=== PATIENT | male | born 1935 | race Caucasian/White ===

== ENCOUNTER 2021-06-16 00:47 | Inpatient (IN) | payer MEDICARE, BC ==
--- NOTE | 2021-06-16 01:05 | EDM.PDOC ---
ED HPI GENERAL MEDICAL PROBLEM - General Chief Complaint: Abdominal Pain Stated Complaint: STOMACH PAIN Time Seen by Provider: 06/16/21 00:55 Source of Information: Reports: Patient History Limitations: Reports: No Limitations - History of Present Illness INITIAL COMMENTS - FREE TEXT/NARRATIVE: Pierre is an 86-year-old male who presents to the ED for evaluation of acute onset of severe epigastric pain that started after eating supper tonight. The patient denies any nausea or vomiting but the pain has been building since its onset. He thought he could make it till morning, however, the pain is so intense now that he decided to come in. He does have a history for recently being treated for a bleeding gastric ulcer which was cauterized through endoscopy 4 months ago. The patient is on Protonix for this. He also has a remote history of bowel obstruction having to have a small portion of his bowel removed about 40 years ago. He denies any hematochezia, melena, or hematemesis. He has had no coffee-ground emesis. He denies any fever but does have chills. He denies any urinary symptoms. The symptoms started promptly after eating supper. Abdomen Pain Score (Numeric/FACES): 9 - Related Data Allergies Allergy/AdvReac Type Severity Reaction Status Date / Time No Known Allergies Allergy Verified 06/16/21 01:07 Home Meds: Home Meds Albuterol Sulfate [Albuterol Sulfate Hfa] 2 puff IH Q4H PRN 06/16/21 [History] Pantoprazole [ProTONIX] 40 mg PO DAILY 06/16/21 [History] Umeclidinium Brm/Vilanterol Tr [Anoro Ellipta 62.5-25 MCG] 1 each IH DAILY 06/16/21 [History] ED ROS GENERAL - Review of Systems Review Of Systems: See Below Constitutional: Reports: Chills HEENT: Reports: No Symptoms Respiratory: Reports: No Symptoms Cardiovascular: Reports: No Symptoms Endocrine: Reports: No Symptoms GI/Abdominal: Reports: Abdominal Pain (Epigastric) : Reports: No Symptoms Musculoskeletal: Reports: No Symptoms Skin: Reports: No Symptoms Neurological: Reports: No Symptoms Psychiatric: Reports: No Symptoms Hematologic/Lymphatic: Reports: No Symptoms Immunologic: Reports: No Symptoms ED EXAM, GI/ABD - Physical Exam Exam: See Below Exam Limited By: No Limitations General Appearance: Alert, Anxious, Moderate Distress, Thin Throat/Mouth: Normal Inspection, Normal Oropharynx, Normal Voice, No Airway Compromise Head: Atraumatic, Normocephalic Neck: Normal Inspection Respiratory/Chest: No Respiratory Distress, Lungs Clear, Normal Breath Sounds Cardiovascular: Normal Peripheral Pulses, Regular Rate, Rhythm, No Murmur, Other (Very loud systolic click heard in the left anterior chest) GI/Abdominal Exam: Guarding, Rebound, Tender (Moderate to severe epigastric tenderness), Abnormal Bowel Sounds (Absent bowel sounds), Other ([place]ym[place] to percussion throughout the abdomen) Extremities: Normal Inspection, No Pedal Edema Neurological: Alert, Oriented, Normal Cognition, No Motor/Sensory Deficits Psychiatric: Anxious Skin Exam: Warm, Dry, Pallor Lymphatic: No Adenopathy Course - Vital Signs Last Recorded V/S: Last Vital Signs Temp 36.6 C 06/16/21 01:07 Pulse 69 06/16/21 01:07 Resp 24 H 06/16/21 01:07 BP 90/50 L 06/16/21 01:07 Pulse Ox 97 06/16/21 01:07 - Orders/Labs/Meds Orders: Active Orders 24 hr Category Date Time Status Chest 1V Frontal [CR] Stat Exams 06/16/21 02:48 Ordered Sodium Chloride 0.9% [Saline Flush] Med 06/16/21 01:29 Active 10 ml FLUSH ASDIRECTED PRN NG [Nasogastric Orogastric Tube Insertion] [OM.PC] Oth 06/16/21 02:48 Ordered Routine Saline Lock Insert [OM.PC] Routine Oth 06/16/21 01:29 Ordered Medication Orders Sodium Chloride (Sodium Chloride 0.9% 10 Ml Syringe) 10 ml FLUSH ASDIRECTED PRN PRN Reason: Keep Vein Open Last Admin: 06/16/21 01:40 Dose: 10 ml Documented by: MARIA A Labs: Laboratory Tests 06/16/21 06/16/21 Range/Units 01:35 01:35 WBC 7.5 (4.5-11.0) K/uL RBC 3.92 L (4.30-5.90) M/uL Hgb 10.8 L (12.0-15.0) g/dL Hct 34.5 L (40.0-54.0) % MCV 88 (80-98) fL MCH 28 (27-31) pg MCHC 31 L (32-36) % Plt Count 247 (150-400) K/uL Neut % (Auto) 79.2 H (36-66) % Lymph % (Auto) 11.9 L (24-44) % [place] % (Auto) 8.0 H (2-6) % Eos % (Auto) 0.8 L (2-4) % Baso % (Auto) 0.1 (0-1) % Sodium 135 L (140-148) mmol/L Potassium 4.3 (3.6-5.2) mmol/L Chloride 97 L (100-108) mmol/L Carbon Dioxide 29 (21-32) mmol/L Anion Gap 13.3 (5.0-14.0) mmol/L BUN 18 (7-18) mg/dL Creatinine 1.0 (0.8-1.3) mg/dL Est Cr Clr Drug Dosing 42.34 mL/min Estimated GFR (MDRD) > 60 (>60) Glucose 103 (74-106) mg/dL Calcium 8.6 (8.5-10.1) mg/dL Total Bilirubin 0.2 (0.2-1.0) mg/dL AST 32 (15-37) U/L ALT 22 (12-78) U/L Alkaline Phosphatase 60 (46-116) U/L Total Protein 6.7 (6.4-8.2) g/dL Albumin 2.9 L (3.4-5.0) g/dL Globulin 3.8 H (2.3-3.5) g/dL Albumin/Globulin Ratio 0.8 L (1.2-2.2) Lipase 104 (73-393) U/L Meds: Medications Generic Name Dose Route Start Last Admin Trade Name Freq PRN Reason Stop Dose Admin Sodium Chloride 10 ml 06/16/21 01:29 06/16/21 01:40 Sodium Chloride 0.9% 10 Ml Syringe FLUSH 10 ml ASDIRECTED PRN Administration Keep Vein Open Discontinued Medications Generic Name Dose Route Start Last Admin Trade Name Freq PRN Reason Stop Dose Admin Hydromorphone HCl 0.5 mg 06/16/21 01:29 06/16/21 01:43 Hydromorphone 0.5 Mg/0.5 Ml Syringe IVPUSH 06/16/21 01:30 0.5 mg ONETIME ONE Administration Lidocaine HCl 10 ml 06/16/21 02:48 Lidocaine 2% Jelly 10 Ml Urojet MUCMEM 06/16/21 02:49 ONETIME ONE Ondansetron HCl 4 mg 06/16/21 01:29 06/16/21 01:40 Ondansetron 4 Mg/2 Ml Sdv IVPUSH 06/16/21 01:30 4 mg ONETIME ONE Administration - Radiology Interpretation Free Text/Narrative:: I reviewed the patient's CT of the abdomen and pelvis without contrast as well as the report. #1, the patient has nodular infiltrates present in the right lower lobe of the lung visualized on the right middle lobe of the lung as well worrisome for active granulomatous infection such as MAGGI or tuberculosis. #2, the small bowel is fluid-filled and distended measuring up to 3.2 cm in diameter with a transition point in the right flank where there is also decompressed small bowel loops seen extending into the anterior right perihepatic space. Findings are due to a high-grade small bowel obstruction from an internal hernia. #3, mild to moderate amount of stool is present in the rectal vault, correlation with physical exam is recommended to exclude fecal impaction. #4, there is a fluid-filled density structure with scattered marginal calcifications posteriorly in the right upper quadrant, interposed between the liver and right kidney, measuring 8.8 x 3.6 cm. This may arise from the right adrenal gland. Comparison with any outside prior imaging is recommended and if they cannot be obtained further evaluation with MRI is recommended. - Re-Assessments/Exams Free Text/Narrative Re-Assessment/Exam: 06/16/21 02:53 I reviewed the patient's labs showing a normal CBC with a leukocyte count of 7.5, hemoglobin of 10.8, hematocrit of 34.5, and platelet count of 247,000. The patient's comprehensive metabolic panel is also normal with a sodium of 135, potassium of 4.3, chloride of 97, bicarbonate of 29, BUN of 18 with a creatinine 1.0 and a glucose of 103. Liver enzymes are normal. Lipase is 104. One of the worrisome findings on the CT was the nodular infiltrates present in the right lung. This is being monitored on an ongoing basis by the [facility] with his last CT of the chest being done on 05/11/2017. I discussed the case with Dr. Guy who recommends putting an NG tube in on low intermittent suction, admitting the patient to the hospital who plan on taking the patient to the operating room this morning to address the internal hernia and high-grade small bowel obstruction. I discussed the case with Alethea Mtz, DIRECTOR OF RESIDENTIAL SERVICES will arrange for the admission. Departure - Departure Time of Disposition: 02:50 Disposition: Admitted As Inpatient 68 Clinical Impression: Small bowel obstruction, Hernia, internal Abdominal pain Qualifiers: Abdominal location: epigastric Qualified Code(s): R10.13 - Epigastric pain - Discharge Information Referrals: PCP,None [Primary Care Provider] - Forms: ED Department Discharge Sepsis Event Note (ED) - Focused Exam Vital Signs: Vital Signs Temp Pulse Resp BP Pulse Ox 06/16/21 01:07 36.6 C 69 24 H 90/50 L 97 - Problem List & Annotations (1) Abdominal pain SNOMED Code(s): 72429166 Code(s): R10.9 - UNSPECIFIED ABDOMINAL PAIN Status: Acute Priority: High Current Visit: Yes Qualifiers: Abdominal location: epigastric Qualified Code(s): R10.13 - Epigastric pain (2) Hernia, internal SNOMED Code(s): 92041108 Code(s): K45.8 - OTH ABDOMINAL HERNIA WITHOUT OBSTRUCTION OR GANGRENE Status: Acute Priority: High Current Visit: Yes (3) Small bowel obstruction SNOMED Code(s): 620577212 Code(s): K56.609 - UNSP INTESTNL OBST, UNSP TO PARTIAL VERSUS COMPLETE OBST Status: Acute Priority: High Current Visit: Yes - Problem List Review Problem List Initiated/Reviewed/Updated: Yes - My Orders Last 24 Hours: My Active Orders 06/16/21 01:29 Sodium Chloride 0.9% [Saline Flush] 10 ml FLUSH ASDIRECTED PRN Saline Lock Insert [OM.PC] Routine 06/16/21 02:48 Chest 1V Frontal [CR] Stat NG [Nasogastric Orogastric Tube Insertion] [OM.PC] Routine - Assessment/Plan Last 24 Hours: My Active Orders 06/16/21 01:29 Sodium Chloride 0.9% [Saline Flush] 10 ml FLUSH ASDIRECTED PRN Saline Lock Insert [OM.PC] Routine 06/16/21 02:48 Chest 1V Frontal [CR] Stat NG [Nasogastric Orogastric Tube Insertion] [OM.PC] Routine
[2021-06-16] MEDS ORDERED: Sodium Chloride 0.9% 10 ML Syringe FLUSH PRN (01:29)
[2021-06-16] MEDS ORDERED: HYDROmorphone 0.5 MG/0.5 ML Syringe IVPUSH ONE ×2 (01:29→03:08)
[2021-06-16] MEDS ORDERED: Ondansetron 4 MG/2 ML SDV IVPUSH ONE (01:29)
--- NOTE | 2021-06-16 02:24 | CRLCT ---
For Patients: As a result of the Century Cures Act, medical imaging exams and procedure reports are released immediately into your electronic medical record. You may view this report before your referring provider. If you have questions, please contact your health care provider. INDICATION: Epigastric pain TECHNIQUE: CT Abdomen and pelvis without i.v. contrast. Coronal and sagittal reformats were obtained. COMPARISON: None FINDINGS: Lower chest: Nodular infiltrates are present within the right lower lobe and visualized right middle lobe. Liver: Unremarkable. Spleen: Unremarkable. Pancreas: Unremarkable. Gallbladder: Several punctate gallstones are noted. Kidney: Unremarkable. No kidney or ureteral stones or obstruction seen. Adrenal: Unremarkable. Bowel: The small bowel is fluid-filled and distended measuring up to 3.2 cm in diameter with transition point in the right flank where there also decompressed small bowel loops seen extending into the anterior right perihepatic space. Moderate amount of stool is present throughout the colon which may be due to chronic constipation. A mild to moderate amount of stool is present in the rectal vault. The appendix is normal in appearance and size. Vascular: Unremarkable. Lymph: Unremarkable. Peritoneum: Unremarkable. No pneumoperitoneum is seen. No significant ascites is noted. Pelvis: Mild to moderate enlargement of the prostate gland is noted. Soft tissue: Unremarkable. Bone: Mild chronic compression deformities are present from L3-L5. IMPRESSIONS: 1. Nodular infiltrates are present within the right lower lobe and visualized right middle lobe. Active granulomatous infection such as MAGGI or tuberculosis should be considered. 2. The small bowel is fluid-filled and distended measuring up to 3.2 cm in diameter with transition point in the right flank where there also decompressed small bowel loops seen extending into the anterior right perihepatic space. Findings are due to high-grade small bowel obstruction from an internal hernia. 3. A mild to moderate amount of stool is present in the rectal vault. Correlation with physical exam recommended to exclude fecal impaction. Dictated by John Connor MD @ 06/16/2021 2:22:58 AM Prelim Report By Dr. John Connor @ 06/16/2021 2:23:05 AM ADDENDUM There is a fluid density structure with scattered marginal calcifications posteriorly in the right upper quadrant, interposed between the liver and right kidney, measuring 8.8 x 3.6 cm. This may arise from the right adrenal gland. Comparison with any outside prior imaging is recommended and if they cannot be obtained, further assessment with MRI is recommended. The above findings, this addendum, and recommendations were discussed with Dr. Alvares at 2:29 AM. Please note that all CT scans at this facility use dose modulation, iterative reconstruction, and/or weight-based dosing when appropriate to reduce radiation dose to as low as reasonably achievable. Dictated by: MD @ 06/16/2021 02:33:07 (Electronically Signed)
[2021-06-16] MEDS ORDERED: Lidocaine 2% Jelly 10 ML Urojet MUCMEM ONE (02:48)
--- NOTE | 2021-06-16 03:49 | PCM.HP.2 ---
H&P History of Present Illness - General Date of Service: 06/16/21 Admit Problem/Dx: Admission Diagnosis/Problem Admission Diagnosis/Problem Small bowel obstruction Source of Information: Patient, Provider, RN History Limitations: Reports: No Limitations - History of Present Illness Initial Comments - Free Text/Narative: chief complaint: small bowel obstruction This is a 86 year old male present to the ER for evaluation of sudden onset of abdominal pain after supper this evening. ER evaluation with CT abdominal pelvis shows a high grade small bowel obstructions with internal hernia. Consult to Dr. Nino Guy, who will do surgery this am. to correct this. Labs, NG placed to low intermittent suction in ER. Onset of Symptoms: Reports: Today, Sudden Duration of Symptoms: Reports: Hour(s): Location: Reports: Abdomen Quality: Reports: Sharp, Stabbing Severity: Severe Improves with: Reports: None Worsens with: Reports: None Associated Symptoms: Reports: No Other Symptoms Abdomen Pain Score (Numeric/FACES): 9 - Related Data Allergies/Adverse Reactions: Allergies Allergy/AdvReac Type Severity Reaction Status Date / Time No Known Allergies Allergy Verified 06/16/21 01:07 Home Medications: Home Meds Albuterol Sulfate [Albuterol Sulfate Hfa] 2 puff IH Q4H PRN 06/16/21 [History] Pantoprazole [ProTONIX] 40 mg PO DAILY 06/16/21 [History] Umeclidinium Brm/Vilanterol Tr [Anoro Ellipta 62.5-25 MCG] 1 each IH DAILY 06/16/21 [History] Past Medical History HEENT History: Reports: Impaired Vision Gastrointestinal History: Reports: GERD Musculoskeletal History: Reports: Fracture Hematologic History: Reports: Blood Transfusion(s) - Past Surgical History GI Surgical History: Reports: EGD, Small Bowel Social & Family History - Tobacco Use Tobacco Use Status *Q: Never Tobacco User Second Hand Smoke Exposure: No - Caffeine Use Caffeine Use: Reports: Coffee - Recreational Drug Use Recreational Drug Use: No - Living Situation & Occupation Living situation: Reports: 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 to his Britt >60 years, had two Sons. Key in [facility] for 9 months at a time.) H&P Review of Systems - Review of Systems: Review Of Systems: See Below General: Reports: Other (sleeping- awakens to name. AOx3, reports mild abdominal pain at this time, had pain medication in ER) HEENT: Reports: No Symptoms Pulmonary: Reports: No Symptoms Cardiovascular: Reports: No Symptoms Gastrointestinal: Reports: Abdominal Pain, Other (history of Crohns Disease) Genitourinary: Reports: No Symptoms Musculoskeletal: Reports: Back Pain (chronic back pain) Skin: Reports: Pallor, Dryness Psychiatric: Reports: No Symptoms Neurological: Reports: No Symptoms Hematologic/Lymphatic: Reports: No Symptoms Immunologic: Reports: No Symptoms Exam - Exam Exam: See Below - Vital Signs Vital Signs: Last Vital Signs Temp 98 F 06/16/21 01:07 Pulse 85 06/16/21 03:17 Resp 36 H 06/16/21 03:17 BP 127/69 06/16/21 03:17 Pulse Ox 99 06/16/21 03:17 Weight: 120 lb - Exam Quality Assessment: DVT Prophylaxis General: Alert, Oriented, Cooperative, Mild Distress, Other (very pale, thin, elderly male, pleasant and interactive) HEENT: PERRLA, Hearing Intact, Mucosa Moist & [place], Nares Patent, Normal Nasal Septum, Posterior Pharynx Clear, Conjunctiva Clear, EOMI, EACs Clear, TMs Clear Neck: Supple, Trachea Midline, Full Range of Motion Lungs: Clear to Auscultation, Normal Respiratory Effort Cardiovascular: Regular Rate, Regular Rhythm, Normal S1, Normal S2, Other (very loud systolic click left anterior chest) GI/Abdominal Exam: Guarding, Rebound, Tender, Abnormal Bowel Sounds (absent bowel sounds), Other (old surgical scars noted) (Male) Exam: Deferred Rectal (Males) Exam: Deferred Back Exam: Normal Inspection Extremities: Normal Inspection, Normal Range of Motion, Non-Tender, No Pedal Edema, Normal Capillary Refill Peripheral Pulses: 1+: Radial (L), Radial (R), Dorsalis Pedis (L), Dorsalis Pedis (R) Skin: Warm, Dry, Other (pallor) Neurological: Strength Equal Bilateral, Normal Gait, Normal Speech, Normal Tone, Sensation Intact Neuro Extensive - Mental Status: Alert, Oriented x3, Normal Mood/Affect, Normal Cognition, Memory Intact Neuro Extensive - Motor, Sensory, Reflexes: Normal Gait Psychiatric: Alert, Normal Affect, Normal Mood - Patient Data Lab Results Last 24 hrs: Laboratory Results - last 24 hr 08/02/21 08/02/21 Range/Units 01:35 01:35 WBC 7.5 (4.5-11.0) K/uL RBC 3.92 L (4.30-5.90) M/uL Hgb 10.8 L (12.0-15.0) g/dL Hct 34.5 L (40.0-54.0) % MCV 88 (80-98) fL MCH 28 (27-31) pg MCHC 31 L (32-36) % Plt Count 247 (150-400) K/uL Neut % (Auto) 79.2 H (36-66) % Lymph % (Auto) 11.9 L (24-44) % [place] % (Auto) 8.0 H (2-6) % Eos % (Auto) 0.8 L (2-4) % Baso % (Auto) 0.1 (0-1) % Sodium 135 L (140-148) mmol/L Potassium 4.3 (3.6-5.2) mmol/L Chloride 97 L (100-108) mmol/L Carbon Dioxide 29 (21-32) mmol/L Anion Gap 13.3 (5.0-14.0) mmol/L BUN 18 (7-18) mg/dL Creatinine 1.0 (0.8-1.3) mg/dL Est Cr Clr Drug Dosing 42.34 mL/min Estimated GFR (MDRD) > 60 (>60) Glucose 103 (74-106) mg/dL Calcium 8.6 (8.5-10.1) mg/dL Total Bilirubin 0.2 (0.2-1.0) mg/dL AST 32 (15-37) U/L ALT 22 (12-78) U/L Alkaline Phosphatase 60 (46-116) U/L Total Protein 6.7 (6.4-8.2) g/dL Albumin 2.9 L (3.4-5.0) g/dL Globulin 3.8 H (2.3-3.5) g/dL Albumin/Globulin Ratio 0.8 L (1.2-2.2) Lipase 104 (73-393) U/L Result Diagrams: 06/16/21 01:35 06/16/21 01:35 Sepsis Event Note - Evaluation Sepsis Screening Result: No Definite Risk - Focused Exam Vital Signs: Vital Signs Temp Pulse Resp BP Pulse Ox 06/16/21 03:17 85 36 H 127/69 99 06/16/21 01:07 98 F 69 24 H 90/50 L 97 - Problem List (1) Small bowel obstruction SNOMED Code(s): 589005320 ICD Code: K56.609 - UNSP INTESTNL OBST, UNSP TO PARTIAL VERSUS COMPLETE OBST Status: Acute Priority: High Current Visit: Yes (2) Hernia, internal SNOMED Code(s): 62510932 ICD Code: K45.8 - OTH ABDOMINAL HERNIA WITHOUT OBSTRUCTION OR GANGRENE Status: Acute Priority: High Current Visit: Yes (3) Chronic restrictive lung disease SNOMED Code(s): 93257405 ICD Code: J98.4 - OTHER DISORDERS OF LUNG Status: Acute Priority: Medium Current Visit: Yes Problem List Initiated/Reviewed/Updated: Yes Orders Last 24hrs: Active Orders 24 hr Category Date Time Status Patient Status Manage Transfer [TRANSFER] Routine ADT 06/16/21 03:33 Active Chest 1V Frontal [CR] Stat Exams 06/16/21 02:48 Ordered Sodium Chloride 0.9% [Saline Flush] Med 06/16/21 01:29 Active 10 ml FLUSH ASDIRECTED PRN NG [Nasogastric Orogastric Tube Insertion] [OM.PC] Oth 06/16/21 02:48 Ordered Routine Saline Lock Insert [OM.PC] Routine Oth 06/16/21 01:29 Ordered Resuscitation Status Routine Resus Stat 06/16/21 03:35 Ordered Medication Orders Sodium Chloride (Sodium Chloride 0.9% 10 Ml Syringe) 10 ml FLUSH ASDIRECTED PRN PRN Reason: Keep Vein Open Last Admin: 06/16/21 01:40 Dose: 10 ml Documented by: MARIA A Assessment/Plan Comment:: ASSESSMENT AND PLAN OF CARE- SMALL BOWEL OBSTRUCTION WITH INTERNAL HERNIA Small bowel obstruction-CT scan show small bowel obstruction with internal hernia -IV fluids- D5LR at 125ml/hr -Pain and nausea management -NG tube to intermittent suction -Surgical consultation Dr. Nino Guy- will do surgical repair this morning -Nothing by mouth Chronic Restrictive Lung Disease -albuterol and due neb ordered as needed -pulse ox prn Maintenance issues - - DVT prophylaxis - SCD - GI prophylaxis -PPI - IV Protonix 40 mg daily - Nutrition -nothing by mouth - Giron catheter -not indicated CODE STATUS -full code Admission justification - this patient will be admitted for inpatient services and is medically appropriate meeting medical necessity for inpatient admission as outlined in my documentation. I reasonably expect the patient will require inpatient services that span a period time over 2 midnights. I reasonably expect this patient to be discharged or transferred within 96 hours after admission to the [facility]. Disposition -I would anticipate discharge home after the hospital stay [facility] Y[facility]legria M.D. Surgery Service - Dr. Nino Guy - Mortality Measure- good - Mortality Measure Prognosis:: Good
[2021-06-16] MEDS ORDERED: Acetaminophen 650 MG Supp RECTAL PRN (04:21)
[2021-06-16] MEDS ORDERED: Dextrose 5%-Lactated Ringers 1,000 ML IV SCH (04:21)
[2021-06-16] MEDS ORDERED: LORazepam 2 MG/ML SDV IV PRN (04:21)
[2021-06-16] MEDS ORDERED: Albuterol 0.083% 2.5 MG/3 ML Neb Soln NEB PRN (04:21)
[2021-06-16] MEDS: Morphine 2 MG/ML SYRINGE IVPUSH PRN ×3 (04:56→08:23)
[2021-06-16] MEDS: Ondansetron 4 MG/2 ML SDV IV PRN (06:46)
[2021-06-16] MEDS: Tiotropium BR/Olodaterol HCL 4 GM Inhalation Spray 2.5mcg/1 dose; 10 doses INH SCH (07:55)
[2021-06-16] MEDS: Pantoprazole 40 MG Vial IV SCH (07:56)
[2021-06-16] MEDS ORDERED: Propofol 200 MG/20 ML SDV ONE (07:58)
[2021-06-16] MEDS ORDERED: Succinylcholine 200 MG/10 ML MDV ONE (07:58)
[2021-06-16] MEDS ORDERED: Ondansetron 4 MG/2 ML SDV ONE (07:58)
[2021-06-16] MEDS ORDERED: Neostigmine Methylsulfate 1 MG/ML 5 ML Syringe ONE (07:58)
[2021-06-16] MEDS ORDERED: Dexamethasone 4 MG/ML SDV ONE (07:58)
[2021-06-16] MEDS ORDERED: Glycopyrrolate 0.2 MG/ML 5 ML MDV ONE (07:58)
[2021-06-16] MEDS ORDERED: Rocuronium 50 MG/5 ML Vial ONE (07:58)
[2021-06-16] MEDS ORDERED: cefOXitin 2 GM in Sodium Chloride 0.9% 50 ML IV ONE (08:00)
[2021-06-16] MEDS ORDERED: fentaNYL 250 MCG/5 ML SDV ONE (08:00)
--- NOTE | 2021-06-16 08:26 | HP ---
HISTORY OF PRESENT ILLNESS: Pierre presented to [facility] with a sudden onset of abdominal pain. He had a CT scan with impression of small bowel fluid-filled and distended measuring up to 3.2 cm in diameter with transition point in the right flank where there are also decompressed small bowel loops seen extending into the anterior right perihepatic space. Findings are suggestive of a high-grade small bowel obstruction from an internal hernia. Surgery was asked to consult in regard to diagnosis of small bowel obstruction. Pierre is reporting pain on a pain scale of 1 to 10 about a 10/10. He is not due for a pain medication until 7:40. Vital signs are stable. Pain is a sharp pressure, it comes and goes, but never completely goes away. It ranges from a 7 to 10 out of a pain scale of 10 associated with nausea. Pain radiates to the lower back. No fever, chills. Has not had any weight loss. Nothing aggravates the pain. Nothing alleviates the pain that he has tried at home. REVIEW OF SYSTEMS: HEENT: Negative. NECK: Negative. HEART: No chest pain, shortness of breath, fast or irregular heart beat. LUNGS: No cough. ABDOMEN: As above. EXTREMITIES: Negative for any joint pain or swelling. NEUROLOGIC: No history of weakness, numbness, falls, or loss of coordination. PSYCHIATRIC: Negative for depression, insomnia. SKIN: Without rash. The remainder of review of systems negative for any pertinent positives and negatives. PAST MEDICAL HISTORY: Includes impaired vision, gastroesophageal reflux disease, and he did have a blood transfusion, partial small bowel obstruction. PAST SURGICAL HISTORY: He says he had surgery on his small bowel about 30 years ago and states it was due to an infection. Esophagogastroduodenoscopy between 4 to 6 months ago. He states he had an ulcer. SOCIAL HISTORY: Drinks coffee. Does not smoke. Does not drink any carbonation. FAMILY HISTORY: No family history that is contributory to today's visit. LIVING SITUATION: He is . Retired math specialist and counselor. Lived in [place], [place]. He has been 60 years. Has 2 sons and they go to [place] for 9 months throughout the winter. ALLERGIES: NO KNOWN MEDICAL ALLERGIES. MEDICATIONS: Anoro 1 puff inhalation daily, albuterol inhaler 2 puffs inhalation 4 hours p.r.n. wheezing, Protonix 40 mg p.o. daily. PHYSICAL EXAMINATION: GENERAL: Pierre is a pleasant 86-year-old male. VITAL SIGNS: Height is 5 feet 10 inches, weight is 120 pounds. TPR 97.8, 59, 16, blood pressure 107/52. HEENT: Negative. NECK: Supple. HEART: Regular rate and rhythm. LUNGS: Clear. ABDOMEN: Very tender, firm. EXTREMITIES: Without peripheral edema. NEUROLOGIC: Cranial nerves 2 through 12 intact. PSYCHIATRIC: Mood and affect appropriate. ASSESSMENT: Small bowel obstruction. PLAN: Schedule and have consent signed for exploratory laparotomy with release of small bowel obstruction and possible small bowel resection. General anesthesia, TAP block. Case to follow, 06/16/2021. Surgeon: Nino Guy MD. Cefoxitin 2 g IV on-call to OR. Postop orders will be written per Nino Guy MD. Arianna Sinclair PA-C /[id number]
[2021-06-16] MEDS ORDERED: Naloxone 0.4 MG/ML SDV IV PRN (09:00)
[2021-06-16] MEDS ORDERED: Tiotropium Bromide 4 GM Inhalation Spray (2.5mcg/1 dose; 10 doses) INH SCH (09:00)
[2021-06-16] MEDS ORDERED: Morphine PF 150 MG/30 ML PCA Syringe IV PRN (09:00)
[2021-06-16] MEDS ORDERED: Non-Formulary Medication 1 Each (Umeclidinium Brm/Vilanterol Tr [Anoro Ellipta 62.5-25 Mcg IH SCH (09:00)
[2021-06-16] MEDS ORDERED: Meropenem 500 MG SDV ONE (09:09)
[2021-06-16] MEDS ORDERED: Lidocaine 1% with EPINEPHrine 1:100,000 50 ML MDV ONE (09:09)
[2021-06-16] MEDS ORDERED: Bupivacaine 0.5% 50 ML MDV ONE (09:09)
[2021-06-16] MEDS ORDERED: Meropenem 500 MG SDV IRR ONE ×2 (11:45→12:10)
[2021-06-16] MEDS ORDERED: fentaNYL 100 MCG/2 ML SDV ONE (12:21)
[2021-06-16] MEDS ORDERED: Naloxone 0.4 MG/ML SDV ONE (12:38)
[2021-06-16] MEDS ORDERED: Cyclobenzaprine 10 MG Tab PO PRN (13:49)
[2021-06-16] MEDS ORDERED: hydrOXYzine HCL 100 MG/2 ML SDV IM PRN (14:00)
[2021-06-16] MEDS ORDERED: Labetalol 20 MG/4 ML Syringe IVPUSH PRN (14:00)
[2021-06-16] MEDS ORDERED: Acetaminophen 500 MG Tab PO PRN (14:00)
[2021-06-16] MEDS ORDERED: Albuterol/Ipratropium 3.0-0.5 MG/3 ML Neb Soln INH PRN (14:00)
[2021-06-16] MEDS ORDERED: Metoclopramide 10 MG/2 ML SDV IVPUSH PRN (14:00)
[2021-06-16] MEDS ORDERED: diphenhydrAMINE 50 MG/ML SDV IVPUSH PRN (14:00)
[2021-06-16] MEDS: Albuterol/Ipratropium 3.0-0.5 MG/3 ML Neb Soln INH SCH ×2 (14:11→21:22)
[2021-06-16] MEDS: cefOXitin 2 GM in Sodium Chloride 0.9% 50 ML IV SCH ×2 (15:19→21:21)
[2021-06-16] MEDS ORDERED: Lactated Ringers 500 ML IV ONE (15:45)
[2021-06-16] MEDS ORDERED: MVI, Adult with Vitamin K 10 ML, Thiamine 200 MG, Zinc/Copper/Manganese/Selenium 1 ML i... IV SCH ×4 (16:00)
[2021-06-16] MEDS: Acetaminophen 500 MG Tab PO SCH ×2 (16:26→21:21)
[2021-06-16] MEDS: Dextrose 5%-Lactated Ringers 1,000 ML IV SCH (21:21)
[2021-06-16] MEDS: Celecoxib 200 MG Cap PO SCH (21:21)
[2021-06-17] MEDS: Dextrose 5%-Lactated Ringers 1,000 ML IV SCH (03:12)
[2021-06-17] MEDS: cefOXitin 2 GM in Sodium Chloride 0.9% 50 ML IV SCH ×3 (03:12→16:07)
[2021-06-17] MEDS ORDERED: Iopamidol 612 MG/ML 50 ML SDV PO STA (04:53)
[2021-06-17] MEDS: Acetaminophen 500 MG Tab PO SCH ×3 (06:31→21:01)
[2021-06-17] MEDS ORDERED: Potassium Phosphates 30 MMOLE in Sodium Chloride 0.9% 250 ML IV SCH (07:15)
[2021-06-17] MEDS: Albuterol/Ipratropium 3.0-0.5 MG/3 ML Neb Soln INH SCH ×4 (07:24→21:03)
[2021-06-17] MEDS: Tiotropium BR/Olodaterol HCL 4 GM Inhalation Spray 2.5mcg/1 dose; 10 doses INH SCH (07:37)
[2021-06-17] MEDS: Pantoprazole 40 MG Vial IV SCH (07:57)
[2021-06-17] MEDS: Magnesium Sulfate/Water 2 GM/50 ML BAG IV SCH ×3 (08:07→20:58)
[2021-06-17] MEDS: Celecoxib 200 MG Cap PO SCH ×2 (08:08→21:01)
[2021-06-17] MEDS: Docusate Sodium 100 MG Cap PO SCH ×3 (08:08→21:16)
[2021-06-17] MEDS: Bisacodyl 5 MG Tab PO SCH ×2 (08:08→21:01)
[2021-06-17] MEDS: Potassium Phos in 0.9 % NaCl 15 MMOL in Premix Bag 1 BAG IV SCH ×4 (09:03→11:55)
[2021-06-17] MEDS: Ondansetron 4 MG/2 ML SDV IV PRN (10:17)
--- NOTE | 2021-06-17 11:44 | PN ---
DATE OF SERVICE: 06/17/2021 SUBJECTIVE: Pierre is postop day 1. He reports his pain is controlled. He has no other questions or concerns. OBJECTIVE: GENERAL: Pierre Martino is a pleasant 86-year-old male. He is alert and oriented. VITAL SIGNS: TPR is 97, 79, 18, blood pressure is 102/51. HEENT: Negative. NECK: Supple. HEART: Regular rate and rhythm. LUNGS: Clear. ABDOMEN: Dressings dry and intact. Abdominal binder is on. EXTREMITIES: Without peripheral edema. ASSESSMENT: Exploratory laparotomy with lysis of adhesions. 1. Reduction, small bowel volvulus. 2. Small bowel resection. 3. Small bowel proctoplasty. 4. Enterotomy for tube decompression, small bowel. 5. Resection of small bowel x2. 6. Excision of pelvic peritoneal implant. 7. Placement of Interceed mesh x2. POSTOPERATIVE DIAGNOSES: 1. Small bowel obstruction secondary to small bowel volvulus secondary to adhesions and segment of small bowel with extensive submucosal hemorrhage. 2. Small bowel stricture. 3. Marked dilatation, proximal small bowel. 4. Multiple proximal small bowel with 2 large ties, narrowed neck, and thrombosed elongation of adhesive inflammation. 5. Pelvic peritoneal implant. 6. Date of procedure 06/16/2021. Surgeon: Nino Guy MD. PLAN: 1. Decrease IV to 100 mL/hr at 1800. 2. Magnesium 2 g q.6 x72 hours IV. 3. K-Phos 30 mmol IV. 4. Check CBC, CMP, phos, and BNP in a.m. 5. Dulcolax 10 mg p.o. b.i.d. 6. Colace 100 mg p.o. b.i.d. 7. Schedule to have consent signed for delayed primary closure for open abdominal incision on 06/18/2021. Surgeon: Nino Guy MD. IV local sedation. 8. TAP block ordered for 06/18/2021, 0715. 9. Good pulmonary. Continue use of incentive spirometer and ambulation. 10.We will evaluate p.r.n. or in a.m. Giron catheter will be left in for marginal urinary output. Arianna Sinclair PA-C /[id number]
[2021-06-17] MEDS ORDERED: Lactated Ringers 500 ML IV ONE (13:00)
[2021-06-17] MEDS ORDERED: MVI, Adult with Vitamin K 10 ML, Thiamine 200 MG, Zinc/Copper/Manganese/Selenium 1 ML i... IV SCH ×4 (16:00)
[2021-06-18] MEDS: cefOXitin 2 GM in Sodium Chloride 0.9% 50 ML IV SCH ×4 (00:45→17:38)
[2021-06-18] MEDS: Dextrose 5%-Lactated Ringers 1,000 ML IV SCH ×2 (00:46→06:57)
[2021-06-18] MEDS: Magnesium Sulfate/Water 2 GM/50 ML BAG IV SCH ×4 (02:35→20:21)
[2021-06-18] MEDS: Acetaminophen 500 MG Tab PO SCH ×3 (06:12→21:03)
[2021-06-18] MEDS ORDERED: Meropenem 500 MG SDV ONE (06:42)
[2021-06-18] MEDS ORDERED: Bupivacaine 0.5% 50 ML MDV ONE (06:43)
[2021-06-18] MEDS ORDERED: Lidocaine 1% with EPINEPHrine 1:100,000 50 ML MDV ONE (06:43)
[2021-06-18] MEDS ORDERED: Propofol 200 MG/20 ML SDV ONE (06:58)
[2021-06-18] MEDS ORDERED: fentaNYL 100 MCG/2 ML SDV ONE (06:58)
[2021-06-18] MEDS: Albuterol/Ipratropium 3.0-0.5 MG/3 ML Neb Soln INH SCH ×4 (07:55→21:03)
[2021-06-18] MEDS: Pantoprazole 40 MG Vial IV SCH (08:28)
[2021-06-18] MEDS ORDERED: Cyanocobalamin (Vitamin B12) 1,000 MCG/ML SDV IM ONE (09:00)
--- NOTE | 2021-06-18 09:07 | CR ---
[facility] HISTORY: Postbariatric surgery FINDINGS: Patient swallowed water-soluble contrast. Upright views of the abdomen show no evidence of extravasation or obstruction. There is postoperative free intraperitoneal air IMPRESSION: Status post bariatric surgery No extravasation or obstruction seen
[2021-06-18] MEDS: Celecoxib 200 MG Cap PO SCH ×4 (09:54→21:05)
[2021-06-18] MEDS: Docusate Sodium 100 MG Cap PO SCH ×2 (09:54→20:25)
[2021-06-18] MEDS: Bisacodyl 5 MG Tab PO SCH ×2 (09:54→20:25)
[2021-06-18] MEDS: Tiotropium BR/Olodaterol HCL 4 GM Inhalation Spray 2.5mcg/1 dose; 10 doses INH SCH (09:59)
[2021-06-18] MEDS ORDERED: Docusate Sodium 100 MG Cap PO SCH (10:00)
--- NOTE | 2021-06-18 11:02 | PN ---
DATE OF SERVICE: 06/18/2021 SUBJECTIVE: Pierre is n.p.o. He will be going down for delayed primary closure. Vital signs have been stable. He states pain is controlled. Oral intake 280. Urine output via Giron catheter 575. REVIEW OF SYSTEMS: Remainder of review of systems negative for any pertinent positives and negatives. OBJECTIVE: GENERAL: Pierre is a pleasant, 86-year-old male. He is alert and orientated. Color pale. VITAL SIGNS: TPR is 97, 82, 14; blood pressure 102/55. HEENT: Negative. NECK: Supple. HEART: Regular rate and rhythm. LUNGS: Clear. ABDOMEN: Dressings dry and intact. Abdominal binder is on. EXTREMITIES: Without peripheral edema. ASSESSMENT: Exploratory laparotomy with lysis of adhesions. 1. Reduction of small bowel volvulus. 2. Small bowel resection. 3. Small bowel proctoplasty. 4. Enterotomy for tube decompression of small bowel. 5. Resection of small bowel x2. 6. Excision of pelvic peritoneal implants. 7. Placement of Interceed mesh x2. Date of procedure: 06/16/2021. Surgeon: Nino Guy MD. PLAN: Orders to be written after delayed primary closure. Arianna Sinclair PA-C /[id number]
[2021-06-19] MEDS: cefOXitin 2 GM in Sodium Chloride 0.9% 50 ML IV SCH ×3 (00:07→16:16)
[2021-06-19] MEDS: Dextrose 5%-Lactated Ringers 1,000 ML IV SCH ×4 (00:08→22:34)
[2021-06-19] MEDS: Magnesium Sulfate/Water 2 GM/50 ML BAG IV SCH ×4 (01:21→20:56)
[2021-06-19] MEDS: Acetaminophen 500 MG Tab PO SCH (05:56)
[2021-06-19] MEDS: Albuterol/Ipratropium 3.0-0.5 MG/3 ML Neb Soln INH SCH ×4 (07:08→21:03)
[2021-06-19] MEDS: Tiotropium BR/Olodaterol HCL 4 GM Inhalation Spray 2.5mcg/1 dose; 10 doses INH SCH (07:09)
[2021-06-19] MEDS: Pantoprazole 40 MG Vial IV SCH (07:51)
[2021-06-19] MEDS ORDERED: Azithromycin 125 MG in Sodium Chloride 0.9% 150 ML IV SCH (09:00)
[2021-06-19] MEDS: Acetaminophen Soln 650 MG/20.3 ML UD Cup PO SCH ×2 (09:44→16:13)
[2021-06-19] MEDS: Docusate Sodium 100 MG Cap PO SCH ×2 (09:44→20:56)
[2021-06-19] MEDS: Bisacodyl 5 MG Tab PO SCH ×2 (09:44→20:56)
--- NOTE | 2021-06-19 10:03 | PN ---
DATE OF SERVICE: 06/19/2021 SUBJECTIVE: Pierre had oral intake of 870. Urine output 750. He has had some difficulty swallowing pills, which is not new for him. Pain has been controlled. He has not passed any flatus. He has no other concerns or questions. OBJECTIVE: GENERAL: Pierre is a pleasant 86-year-old male. He is alert and orientated. VITAL SIGNS: TPR is 97.5, 101, 18, blood pressure 134/65. HEENT: Negative. NECK: Supple. HEART: Regular rate and rhythm. LUNGS: Clear. ABDOMEN: Dressings dry and intact. Abdominal binder is on. EXTREMITIES: Without peripheral edema. ASSESSMENT: Exploratory laparotomy with lysis of adhesions: 1. Reduction of small bowel volvulus. 2. Small bowel resection. 3. Small bowel proctoplasty. 4. Enterotomy of tube decompression of small bowel. 5. Resection of small bowel x2. 6. Excision of pelvic peritoneal implants. 7. Placement of Interceed mesh x2. Date of procedure: 06/16/2021. Surgeon: Nino Guy MD. PLAN: 1. Zithromax 125 mg IV q.12 hours scheduled. 2. To give all medications crushed or open capsules because of dysphagia. 3. Tylenol changed to liquid 1000 mg q.8 hours. 4. We will evaluate p.r.n. or in a.m. Arianna Sinclair PA-C /[id number]
[2021-06-19] MEDS: Azithromycin 125 MG in Sodium Chloride 0.9% 150 ML IV SCH (22:34)
[2021-06-20] MEDS: cefOXitin 2 GM in Sodium Chloride 0.9% 50 ML IV SCH ×3 (00:32→16:21)
[2021-06-20] MEDS: Acetaminophen Soln 650 MG/20.3 ML UD Cup PO SCH ×3 (00:33→15:38)
[2021-06-20] MEDS: Magnesium Sulfate/Water 2 GM/50 ML BAG IV SCH (03:04)
[2021-06-20] MEDS: Albuterol/Ipratropium 3.0-0.5 MG/3 ML Neb Soln INH SCH ×4 (07:28→21:58)
[2021-06-20] MEDS: Tiotropium BR/Olodaterol HCL 4 GM Inhalation Spray 2.5mcg/1 dose; 10 doses INH SCH (07:28)
[2021-06-20] MEDS ORDERED: Bisacodyl 10 MG Supp RECTAL PRN (07:32)
[2021-06-20] MEDS ORDERED: Magnesium Hydroxide 400 MG/5 ML Susp 30 ML Cup PO PRN (07:33)
[2021-06-20] MEDS ORDERED: HYDROmorphone 2 MG Tab PO PRN (07:34)
[2021-06-20] MEDS ORDERED: Bisacodyl 10 MG Supp RECTAL ONE (07:45)
[2021-06-20] MEDS ORDERED: Magnesium Hydroxide 400 MG/5 ML Susp 30 ML Cup PO ONE (08:00)
[2021-06-20] MEDS: Docusate Sodium 100 MG Cap PO SCH ×3 (08:07→22:03)
[2021-06-20] MEDS: Bisacodyl 5 MG Tab PO SCH (08:15)
[2021-06-20] MEDS: Pantoprazole 40 MG Delayed-Release Granules 1 Packet PO SCH (08:18)
[2021-06-20] MEDS: Azithromycin 125 MG in Sodium Chloride 0.9% 150 ML IV SCH (11:21)
[2021-06-20] MEDS: Dextrose 5%-Lactated Ringers 1,000 ML IV SCH (12:26)
--- NOTE | 2021-06-20 14:35 | PN ---
DATE OF SERVICE: 06/20/2021 The patient has been afebrile with stable vital signs. He thought he was going to move his bowels this morning, but has not yet. We will continue to give him some bowel stimulation today, continue clear liquids. We will switch over to oral pain medicine exclusively today. He has not been taking much in the way of narcotics. We will recheck some labs tomorrow. He will likely be ready for halfway on Wednesday depending on resolution of his ileus and catholic of his ability to eat. Nino Guy MD /[id number]
[2021-06-20] MEDS ORDERED: diphenhydrAMINE 25 MG Cap PO PRN (19:59)
[2021-06-20] MEDS ORDERED: Metoclopramide 10 MG Tab PO PRN (19:59)
[2021-06-20] MEDS ORDERED: Ondansetron 4 MG Tab.DIS PO PRN (19:59)
[2021-06-21] MEDS: Acetaminophen Soln 650 MG/20.3 ML UD Cup PO SCH ×4 (00:12→23:58)
[2021-06-21] MEDS: Albuterol/Ipratropium 3.0-0.5 MG/3 ML Neb Soln INH SCH ×4 (06:58→20:51)
[2021-06-21] MEDS: Tiotropium BR/Olodaterol HCL 4 GM Inhalation Spray 2.5mcg/1 dose; 10 doses INH SCH (07:02)
[2021-06-21] MEDS: Pantoprazole 40 MG Delayed-Release Granules 1 Packet PO SCH (08:21)
[2021-06-21] MEDS ORDERED: Furosemide 20 MG Tab PO ONE (08:30)
[2021-06-21] MEDS: Docusate Sodium 100 MG Cap PO SCH ×2 (09:10→20:45)
[2021-06-22] MEDS: Albuterol/Ipratropium 3.0-0.5 MG/3 ML Neb Soln INH SCH ×4 (07:01→20:30)
[2021-06-22] MEDS: Tiotropium BR/Olodaterol HCL 4 GM Inhalation Spray 2.5mcg/1 dose; 10 doses INH SCH (07:01)
[2021-06-22] MEDS: Pantoprazole 40 MG Delayed-Release Granules 1 Packet PO SCH (08:28)
[2021-06-22] MEDS: Acetaminophen Soln 650 MG/20.3 ML UD Cup PO SCH ×2 (08:29→16:37)
[2021-06-22] MEDS: Docusate Sodium 100 MG Cap PO SCH ×2 (11:40→20:28)
--- NOTE | 2021-06-22 12:15 | OR ---
DATE OF PROCEDURE: 06/16/2021 SURGEON: Nino Guy MD PREOPERATIVE DIAGNOSIS: Small bowel obstruction. POSTOPERATIVE DIAGNOSES: 1. Small bowel obstruction secondary to small bowel volvulus related to adhesions and a segment of small bowel with extensive submucosal hemorrhage. 2. Separate small bowel stricture. 3. Marked distention of proximal small bowel. 4. 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 5. Pelvic peritoneal implant (7 cm). OPERATIVE PROCEDURES: Exploratory laparotomy with lysis of adhesions: 1. Reduction of small bowel volvulus (11259). 2. Small bowel resection (29485). 3. Small bowel strictureplasty (86656). 4. Enterotomy for tube decompression of dilated proximal small bowel (07145). 5. Resection of small bowel diverticulum x2 (23756 x2). 6. Excision of the pelvic peritoneal implant (27834). 7. Placement of Interceed mesh x2 to limit recurrent adhesion formation between pelvic and abdominal wall and underlying viscera (92762). ANESTHESIA: General. SALES MARKET LEADER: Arianna Sinclair PA-C INDICATIONS FOR PROCEDURE: This is an 86-year-old male admitted overnight with small bowel obstruction with CT suggestive of a small bowel volvulus. The plan is to proceed with exploratory laparotomy with lysis of adhesions and small bowel resection as indicated. Potential risks including bleeding, infection, leaks from any GI tract closures, and problems with recurrence of the obstruction over time as well as possibility of cardiopulmonary, septic, or hemorrhagic complications leading to were all discussed, and the patient wishes to proceed. DETAILS OF PROCEDURE: The patient was taken to the operating room and placed in a supine position. After general endotracheal anesthesia was induced, a Giron catheter was inserted, and the abdomen prepped and draped. Preoperatively, nursing was unable to place a nasogastric tube, but prior to induction of anesthesia, Anesthesia was able to place a nasogastric tube for decompression of the stomach. A midline incision which extended from roughly handsbreadth above the umbilicus to just above the pubis was eventually made and carried down through the full-thickness of abdominal wall. Upon entering the peritoneal cavity, there was some scant slightly blood-tinged fluid present. The patient was noted to have an area of small bowel volvulus, and the bowel involving this had an area of significant submucosal hemorrhage, i.e., was more or less deep red. This was a volvulus involving a loop of bowel protruding underneath some points of adhesion between the previous operative procedures, and the bowel was reduced at this point. Significant portion of this remained quite reddened with some obvious submucosal hemorrhage. Further exploration revealed a secondary volvulus between those adhesions. This area was reduced as well, and this bowel appeared to be viable but had a chronic stricture present. The proximal bowel above the primary point of volvulus was markedly distended but otherwise viable. There were multiple diverticulum involving the proximal small bowel. Two of these had narrow neck and were quite large and thickened, indicative of chronic inflammation, and finally there was a reddened peritoneal implant in the pelvis measuring around 7 cm. At this point, the pelvic implant was excised, and the 2 areas of diverticula were also then excised flush with the small bowel in transverse orientation with MAURO hodan. After reduction of the 2 areas of volvulus, the area of small bowel hemorrhage was treated with resection of the bowel proximal and distal to the area of involvement with MAURO hodan, and the anastomosis was accomplished with internal firing of the Endo-MAURO 60 mm stapler, and the common opening closed transversely with a MAURO stapler as well and angles anastomosed and mesenteric defect approximated with some 3-0 Vicryl stitch. The small bowel stricture was then treated by placing an enterotomy on the anterior mesenteric border of the bowel at the point of stricturing, and then flipping the bowel on itself and internal firing of the MAURO stapler and closed with purple load as well. The angles anastomosed in this case were reinforced with some 3-0 Vicryl stitch, and in this anastomosis there was no mesenteric defect. Prior to the primary small bowel resection and anastomosis, enterotomy had been made, and a large volume of air and fluid was evacuated from the small bowel proximally to facilitate a more safer anastomosis. return of function through that opening, the primary small bowel anastomosis was initiated as well. At this point, no further problems were noted. The areas of concern were irrigated with meropenem-containing saline solution, and the small bowel resection and anastomosis and strictureplasty were both reinforced with fibrin sealant. No drains were felt to be necessary at this point, and Interceed mesh was then placed underneath the incision and from there down towards the pelvis to limit recurrent adhesion formation. The midline fascia was then approximated with a #2 Vicryl stitch. Skin and subcutaneous tissue were felt to be at high risk for wound infection should a primary closure be undertaken, they were therefore packed open, and the patient taken to the recovery room in satisfactory condition. Physician events administrative assistant, Arianna Sinclair PA-C, played an essential role in assisting in this case, helping to position the patient, retract structures as needed, as well as suturing and cutting sutures when indicated. Her presence improved patient safety and decreased operative time. Nino Guy MD /[id number]
--- NOTE | 2021-06-22 12:37 | OR ---
DATE OF PROCEDURE: 06/18/2021 SURGEON: Nino Guy MD PREOPERATIVE DIAGNOSIS: Open abdominal incision. POSTOPERATIVE DIAGNOSIS: Open abdominal incision. PROCEDURE PERFORMED: Delayed primary closure of open abdominal incision. ANESTHESIA: Local plus IV sedation. INDICATION FOR PROCEDURE: The patient is 48 hours status post an open laparotomy in which the skin and subcutaneous tissue were left open for a planned delayed primary closure at this time to limit chances of wound infection. The potential risks including bleeding and infection were reviewed, and the patient wishes to proceed. DETAILS OF PROCEDURE: The patient was taken to the operating room and placed in a supine position. After IV sedation was administered, the operative dressing was taken down and the wound inspected and found to be clean. The wound was then prepped and draped and anesthetized with 1% lidocaine mixed with Marcaine and irrigated with meropenem-containing saline solution. Using ultrasound guidance, bilateral transversus abdominis plane blocks were then placed and the incision then closed with 2 layers of 3-0 and 4-0 Vicryl stitch deep and hodan for the skin. A dressing was applied. The patient was taken to the recovery room in satisfactory condition. There were no evident complications. Nino Guy MD /[id number]
--- NOTE | 2021-06-22 14:08 | PN ---
DATE OF SERVICE: 06/21/2021 The patient has been afebrile with stable vital signs. IV came out, we will try leaving that out today. He is having some frequent loose bowel movements with the antibiotics. There is some possibility he developed some Clostridium difficile colonization or infection, and we will check that today. Otherwise, his BNP is up quite high at 2767. We will give him some oral Lasix today and recheck some labs tomorrow. Tentatively planing for transfer [facility] Wednesday. Nino Guy MD /[id number]
[2021-06-23] MEDS: Acetaminophen Soln 650 MG/20.3 ML UD Cup PO SCH ×2 (00:19→08:22)
[2021-06-23] MEDS: Albuterol/Ipratropium 3.0-0.5 MG/3 ML Neb Soln INH SCH (07:10)
[2021-06-23] MEDS: Tiotropium BR/Olodaterol HCL 4 GM Inhalation Spray 2.5mcg/1 dose; 10 doses INH SCH (07:10)
--- NOTE | 2021-06-23 08:11 | OR ---
DATE OF PROCEDURE: 06/16/2021 SURGEON: Nino Guy MD ADDENDUM: DETAILS OF PROCEDURE: Physician podiatry assistant, Arianna Sinclair, played an essential role in assisting in this case, helping to position the patient, retract structures as needed as well as suturing and cutting sutures when indicated. Her presence improved patient safety and decreased the operative time. Nino Guy MD /[id number]
[2021-06-23] MEDS: Docusate Sodium 100 MG Cap PO SCH (08:22)
[2021-06-23] MEDS: Pantoprazole 40 MG Delayed-Release Granules 1 Packet PO SCH (08:23)
--- NOTE | 2021-06-23 13:01 | PN ---
DATE OF SERVICE: 06/22/2021 The patient has been afebrile with stable vital signs. No major problems have been noted overnight. He is gaining strength and oral intake was around 1900 mL, slowing down. C. difficile enterotoxin assay was negative. Overall, it is gradually improving. We will plan to have him go to senior living tomorrow for a period of rehabilitation prior to discharge home. Nino Guy MD /[id number]
--- NOTE | 2021-06-24 07:21 | DISCH ---
ADMISSION DIAGNOSES: Partial small bowel obstruction, history of Crohn disease, chronic back pain, and chronic restrictive lung disease. DISCHARGE DIAGNOSES: Exploratory laparotomy with lysis of adhesions. 1. Reduction of small bowel volvulus. 2. Small bowel resection. 3. Small bowel strictureplasty. 4. Enterotomy for tube decompression of dilated proximal small bowel. 5. Resection of small bowel diverticulum x2. 6. Excision of the pelvic peritoneal implant. 7. Placement of Interceed mesh x2 to limit recurrent adhesion formation between pelvic and abdominal wall and underlying viscera. POSTOPERATIVE DIAGNOSES: 1. Small bowel obstruction secondary to small bowel volvulus related to adhesions and a segment of small bowel with extensive submucosal hemorrhage. 2. Separate small-bowel stricture. 3. Marked distention of proximal small bowel. 4. 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 5. Pelvic peritoneal implant. Date of procedure, 06/16/2021. Surgeon: Nino Guy MD. 6. Delayed primary closure of open abdominal incision. Date of procedure, 07/08/2021. Surgeon: Nino Guy MD. HISTORY: Pierre is an 86-year-old male, admitted overnight with small bowel obstruction with a CT suggestive of a small-bowel volvulus. After preoperative evaluation, discussion of possible risks and possible complications, he wished to proceed with surgical procedure. HOSPITAL COURSE: Pierre had his surgery on 06/16/2021. He had no operative complications. On postoperative day 2, he had a delayed primary closure with no postop complications. Pain was adequately treated with WEED CUTTER. Vital signs remained stable. He had no postop fevers. He was up ambulating. He was started on bowel stimulation and IV Zithromax and started having bowel movements on 06/20/2021. He did have quite a few bowel movements. A C difficile was obtained and was negative. Oral intake adequate on a regular diet. He was ambulating and up in his room independently as reported per nursing staff. Pierre was able to be discharged to home on 06/23/2021 without any complications. PHYSICAL EXAMINATION: GENERAL: Pierre is a pleasant 86-year-old male, alert and orientated. VITAL SIGNS: Height 5 feet 10 inches, weight is 109 pounds. TPR 96, 99, 16. Blood pressure 134/63. HEENT: Negative. NECK: Supple. HEART: Regular rate and rhythm. LUNGS: Clear. ABDOMEN: Aquacel dressings on. Abdominal binder is on. EXTREMITIES: Without peripheral edema. DISPOSITION: Discharged to home. CONDITION: Stable and improving. FOLLOWUP: Followup appointment with Arianna Sinclair PA-C, on 06/27/2021 at 10:15 a.m. HOME MEDICATIONS: Tylenol 1000 mg q.8 hours p.r.n. pain, Anoro Ellipta inhaler 1 inhalation daily, albuterol sulfate 2 puffs inhalation every 4 hours p.r.n., Protonix 40 mg p.o. daily. DIET: Regular diet as tolerated. Drink 8 to 10 glasses of water a day. ACTIVITY: No lifting greater than 10 pounds for 6 weeks. OTHER ACTIVITY: Walk at least 6 times daily, distance and time as tolerated. Driving, do not drive for 1 week. May shower. Keep operative site clean and dry. Wound incision care, wear abdominal binder for 2 weeks, if tolerated may wear longer. Notify provider if any fever, increased pain, swelling, redness, drainage, nausea, vomiting, and use incentive spirometer 10 times every hour while awake. /[id number]
== END 2021-06-23 09:44 | disposition home or self-care (01) | DRG 329 ==
LOC: JP.ED 00:47 → JP.MS 03:33
PROVIDERS: ADMIT Internal Medicine; ATTEND Surgery
PROC: 0DS80ZZ Reposition Small Intestine, Open Approach (ICD-10-PCS; principal; 2021-06-16)
PROC: 0DQ80ZZ Repair Small Intestine, Open Approach (ICD-10-PCS; 2021-06-16)
PROC: 0DB80ZZ Excision of Small Intestine, Open Approach (ICD-10-PCS; 2021-06-16)
PROC: 0D980ZZ Drainage of Small Intestine, Open Approach (ICD-10-PCS; 2021-06-16)
PROC: 0DBW0ZZ Excision of Peritoneum, Open Approach (ICD-10-PCS; 2021-06-16)
PROC: 3E0M05Z Introduction of Adhesion Barrier into Peritoneal Cavity, Open Approach (ICD-10-PCS; 2021-06-16)
PROC: 0HQ7XZZ Repair Abdomen Skin, External Approach (ICD-10-PCS; 2021-06-18)
DX: K56.2 Volvulus (principal); K56.609 Unspecified intestinal obstruction, unspecified as to partial versus complete obstruction; K45.8 Other specified abdominal hernia without obstruction or gangrene; R10.13 Epigastric pain; K57.11 Diverticulosis of small intestine without perforation or abscess with bleeding; K55.029 Acute infarction of small intestine, extent unspecified; K50.90 Crohn's disease, unspecified, without complications; K56.51 Intestinal adhesions [bands], with partial obstruction; H54.7 Unspecified visual loss; K21.9 Gastro-esophageal reflux disease without esophagitis; Z87.11 Personal history of peptic ulcer disease; Z87.19 Personal history of other diseases of the digestive system; Z79.899 Other long term (current) drug therapy
CPT/HCPCS: 36415; 74176; 80053; 83690; 85025; 96374; 96375; 96376; 99285; J1170 ×2; J2405; 74240; 74240-26; 81001; 83735; 83880; 84100; 85027; 87046; 87493; 87899; 88304; 88305; 88307; 92610-GN; 94640; 94762; 97110-GP; 97161-GP; 97530-GP; 97535-GP; 99222; A9270-GY; C9113; J0171; J0330; J0456; J0694; J1100; J2185; J2270; J2310; J2704; J2710; J2795; J3010; J3411; J3420; J3475; J3490; J7120; J7121; J7620-GY; Q9967

== ENCOUNTER 2022-05-09 06:53 | Emergency (ER) | payer MEDICARE, BC ==
[2022-05-09] MEDS ORDERED: Ketorolac 30 MG/ML SDV IVPUSH ONE (07:16)
[2022-05-09] MEDS ORDERED: fentaNYL 100 MCG/2 ML SDV IVPUSH ONE (08:01)
== END 2022-05-09 09:13 | disposition home or self-care (01) ==
LOC: JP.ED 06:53
DX: M54.50 Low back pain, unspecified (principal); J44.9 Chronic obstructive pulmonary disease, unspecified; K21.9 Gastro-esophageal reflux disease without esophagitis; Z87.891 Personal history of nicotine dependence; Z79.899 Other long term (current) drug therapy
CPT/HCPCS: 72100; 72100-26; 72220; 72220-26; 96374; 96375; 99283; 99283-25; J1885; J3010